=== PATIENT | male | born 1975 | race Caucasian/White ===

== ENCOUNTER 2022-07-13 19:04 | Emergency (ER) | payer BC ==
[~2022-07-13] VITALS: Ht 167.6 cm; Wt 98.9 kg
[2022-07-13 19:14] VITALS: BP 122/94
--- NOTE | 2022-07-13 19:21 | NUR ---
TO LOBBY FOLLOWING TRIAGE
--- NOTE | 2022-07-13 20:50 | NUR ---
PT TO BED #11
[2022-07-13] MEDS ORDERED: KETOROLAC 60 MG/2 ML VIAL IM ONE (21:00)
[2022-07-13] MEDS ORDERED: IBUP-2213 PO (21:07)
[2022-07-13] MEDS ORDERED: ACET-8905 PO (21:07)
[2022-07-13 21:19] VITALS: BP 128/82
--- NOTE | 2022-07-13 21:19 | NUR ---
Patient discharged with v/s stable. Written and verbal after care instructions given and explained. Patient alert, oriented and verbalized understanding of instructions. Ambulatory with steady gait. All questions addressed prior to discharge. ID band removed. Patient advised to follow up with PMD. Rx of NORCO, MOTRIN given. Patient educated on indication of medication including possible reaction and side effects. Opportunity to ask questions provided and answered.
== END 2022-07-13 21:19 | disposition home or self-care (01) ==
LOC: MED 19:04
DX: S80.12XA Contusion of left lower leg, initial encounter (principal); S80.11XA Contusion of right lower leg, initial encounter; X58.XXXA Exposure to other specified factors, initial encounter; Y93.89 Activity, other specified; Y92.89 Other specified places as the place of occurrence of the external cause; Y99.8 Other external cause status
CPT/HCPCS: 96372; 99283; J1885

== ENCOUNTER 2022-10-27 20:50 | Emergency (ER) | payer BC ==
[~2022-10-27] VITALS: Ht 167.6 cm; Wt 104.3 kg
[2022-10-27 20:50] VITALS: BP 135/85
[~2022-10-27 20:50] MED LIST: ACET-8905 PO; IBUP-2213 PO
--- NOTE | 2022-10-27 20:50 | NUR ---
to bed ambulatory
--- NOTE | 2022-10-27 21:15 | NUR ---
Pt ambulatory from home, c/o chest pain that radiates to L side of neck. Onset X1 hr ago; states he was using the restroom when CP started. (+) ringing to both ears during initial onset of CP. (-) N/V, SOB. 7/10 pain scale. PMH: HTN; on Lisinopril 20 mg daily A: NKA
--- NOTE | 2022-10-27 21:33 | NUR ---
MD Vazquez at bedside examining pt.
[2022-10-27] MEDS ORDERED: ASPIRIN 325 MG TAB PO ONE (21:50)
[2022-10-27 22:06] LABS: BASOPHILS % (AUTO) 0.5 % (0.0-2.0); EOSINOPHILS # (AUTO) 0.5 K/uL (0-0.4); EOSINOPHILS % (AUTO) 5.3 % (0.0-4.0); HEMATOCRIT 39.8 % (36-52); HEMOGLOBIN 13.5 g/dL (12.0-18.0); LYMPHOCYTES # (AUTO) 1.7 K/uL (2.0-11.5); LYMPHOCYTES % (AUTO) 18.9 % (20.5-51.1); MEAN CORPUSCULAR HEMOGLOBIN 30 pg (27-31); MEAN CORPUSCULAR HGB CONC 34 g/dL (33-37); MEAN CORPUSCULAR VOLUME 89.5 fL (80-94); MONOCYTES % (AUTO) 11.4 % (1.7-9.3); NEUTROPHILS # (AUTO) 5.8 K/uL (1.8-7.7); NEUTROPHILS % (AUTO) 63.9 % (42.2-75.2); PLATELET COUNT (AUTO) 285 K/uL (140-450); RED BLOOD CELL COUNT(AUTO) 4.45 MIL/uL (4.20-6.10); RED CELL DISTRIBUTION WIDTH 13.2 % (11.6-13.7)
--- NOTE | 2022-10-27 22:20 | NUR ---
Pt medicated as ordered; tolerated well. Denies any CP at this time.
[2022-10-27 22:25] LABS: ALBUMIN 3.5 g/dL (3.4-5.0); ANION GAP 10.9 (8-16); ASPARTATE AMINOTRANSFERASE 30 U/L (15-37); CARBON DIOXIDE 26.8 mmol/L (21-32); CHLORIDE 104 mmol/L (98-107); CREATININE 1.1 mg/dL (0.6-1.3); GFR ARICAN-AMERICAN 93 mL/min (>90); GLUCOSE 118 mg/dL (74-106); LIPASE 72 U/L (73-393); POTASSIUM 3.7 mmol/L (3.5-5.1); SODIUM SERUM 138 mmol/L (136-145); TOTAL BILIRUBIN 0.3 mg/dL (0.0-1.0); UREA NITROGEN, BLOOD 13 mg/dL (7-18)
[2022-10-28 00:43] VITALS: BP 135/85
--- NOTE | 2022-10-28 00:43 | NUR ---
Patient discharged with v/s stable. Written and verbal after care instructions given and explained. Patient verbalized understanding. Ambulatory with steady gait. All questions addressed prior to discharge. Advised to follow up with PMD.
== END 2022-10-28 00:43 | disposition home or self-care (01) ==
LOC: MED 20:50
DX: R07.9 Chest pain, unspecified (principal); R06.02 Shortness of breath; Z79.899 Other long term (current) drug therapy
CPT/HCPCS: 36415; 71045; 80053; 83690; 84484; 85025; 93005; 99285; Q0092